=== PATIENT | female | born 1985 | race Caucasian/White ===

== ENCOUNTER → 2017-11-01 | Outpatient (CLI) | payer OTHER ==
[~2017-11-01] MED LIST: ASPI81EC PO; CALCA500CH PO; CETI10 PO; CETI5 PO; CYCL10 PO; DIPH50 PO; ESTR2 PO; FERR325 PO; GLYB2.5 PO; HYDACE5 PO; IBUP800 PO; IRON150C PO; LEVSOD100 PO; LEVSOD112 PO; MELA3 PO; METF500 PO; MULVITMINE PO; Norco 5-325 Ta1 EACH PO; OXYACE5T PO; PROG100 PO; RXCYCL10 PO; Verotin-Gr Cap1 EACH PO; [UNRECOGNIZED DRUG - OTHER] VAG
[2017-11-03 11:40] LABS: HPV Genotype 16 Detected (NOTDET); HPV Genotype 18 Not Detected (NOTDET)
[2017-11-15 11:28] LABS: HPV High Risk Other Detected (NOTDET)
== END | disposition home or self-care (01) ==
LOC: LAB 16:10
PROVIDERS: Obstetrics & Gynecology
DX: D06.9 Carcinoma in situ of cervix, unspecified (principal); R87.810 Cervical high risk human papillomavirus (HPV) DNA test positive; R87.613 High grade squamous intraepithelial lesion on cytologic smear of cervix (HGSIL)
CPT/HCPCS: 87624; 88142

== ENCOUNTER → 2018-03-05 | Outpatient (CLI) | payer OTHER | END | disposition home or self-care (01) | LOC: LAB SHORT 07:25 → LAB 07:25 → PLD 07:25 | PROVIDERS: Obstetrics & Gynecology | DX: R87.810 Cervical high risk human papillomavirus (HPV) DNA test positive (principal); R87.612 Low grade squamous intraepithelial lesion on cytologic smear of cervix (LGSIL) | CPT/HCPCS: 87624; 88142; 88305 ==

== ENCOUNTER → 2018-10-30 | Outpatient (CLI) | payer OTHER | LOC: LAB SHORT 08:29 → PLD 08:29 | DX: R87.612 Low grade squamous intraepithelial lesion on cytologic smear of cervix (LGSIL) (principal); R87.810 Cervical high risk human papillomavirus (HPV) DNA test positive | CPT/HCPCS: 88305 ==

== ENCOUNTER → 2019-05-21 | Outpatient (CLI) | payer OTHER ==
[~2019-05-21] MED LIST changes: +Adipex-P37.5 MG PO; +Alavert D-12 A1 EACH PO; +DOCU100 PO; +FLUT1DIS2 INH; +Flovent 44 mc10.6 GM INH; +Junel Fe 1-201 EACH PO; +SENN187 PO; +VITAMIN B COMPLEX PO; +VITAMIN D3 PO
[2019-05-23 18:06] LABS: HPV 16 Positive (Negative); HPV 18 Negative (Negative); HPV OTHER HR TYPES Positive (Negative)
== END | disposition home or self-care (01) ==
LOC: LAB 16:10 → LAB SHORT 16:10
PROVIDERS: Obstetrics & Gynecology
DX: R87.810 Cervical high risk human papillomavirus (HPV) DNA test positive (principal); R87.612 Low grade squamous intraepithelial lesion on cytologic smear of cervix (LGSIL)
CPT/HCPCS: 87624; 87625; 88142

== ENCOUNTER 2019-07-19 06:08 | Day surgery (SDC) | payer OTHER ==
[~2019-07-19] VITALS: Ht 167.6 cm; Wt 96.2 kg
--- NOTE | 2019-07-19 06:53 | NUR ---
History, Chart, Medications and Allergies reviewed before start of procedure.Patient confirms NPO status and agrees with scheduled surgery. Lungs clear T/O to Auscultation. Patient States Post-Procedure ride home has been arranged WITH HER FATHER.
--- NOTE | 2019-07-19 10:03 | NUR ---
Discharge instructions reviewed with patient. Patient verbalizes understanding. Copy given to patient to take home. DAD AT BEDSIDE, RIDE HOME.TOLERATED PO JUICE AND CRACKERS WELL AND GAVE PO NORCO PER ORDER.
--- NOTE | 2019-07-19 10:16 | NUR ---
1015- Discharged via wheelchair to private car for ride home.
== END 2019-07-19 10:15 | disposition home or self-care (01) ==
LOC: ORSCMMR 06:08 → ORD 07:30 → ORSCMMR 10:15
PROVIDERS: Surgery
PROC: 0DBQXZX Excision of Anus, External Approach, Diagnostic (ICD-10-PCS; principal; 2019-07-19 07:30)
PROC: 06BY0ZC Excision of Hemorrhoidal Plexus, Open Approach (ICD-10-PCS; principal; 2019-07-19 07:30)
DX: K64.8 Other hemorrhoids (principal); K64.4 Residual hemorrhoidal skin tags; R85.613 High grade squamous intraepithelial lesion on cytologic smear of anus (HGSIL); E03.9 Hypothyroidism, unspecified; J45.909 Unspecified asthma, uncomplicated; E66.9 Obesity, unspecified; Z68.34 Body mass index [BMI] 34.0-34.9, adult; Z79.899 Other long term (current) drug therapy
CPT/HCPCS: 88304; 88305; A9270-GY; J1100; J1885; J2250; J2405; J2704; J2710; J3010; J7120

== ENCOUNTER → 2019-09-17 | Outpatient (CLI) | payer OTHER ==
[2019-09-17 14:41] LABS: BASOPHILS ABSOLUTE AUTO 0.04 K/mm3 (0.00-0.23); BASOPHILS PERCENT AUTO 1 % (0-2); EOSINOPHILS PERCENT AUTO 3 % (0-6); Hematocrit 39.3 % (33.0-51.0); Hemoglobin 12.7 g/dL (11.5-16.0); IMMATURE GRAN ABSOLUTE AUTO 0.02 K/mm3 (0.00-0.10); IMMATURE GRAN PERCENT AUTO 0 % (0-1); LYMPHOCYTES PERCENT AUTO 36 % (21-46); MONOCYTES PERCENT AUTO 11 % (4-13); Mean Corpuscular HGB 30.8 pg (26.0-34.0); Mean Corpuscular HGB Conc 32.3 g/dL (31.5-36.5); Mean Corpuscular Volume 95 fL (80-100); Mean Platelet Volume 11.2 fL (9.1-12.4); NEUTROPHILS ABSOLUTE AUTO 3.19 K/mm3 (1.96-9.15); NEUTROPHILS PERCENT AUTO 49 % (41-73); Platelet Count 297 K/mm3 (150-400); RDW Coefficient Variation 12.8 % (11.7-14.2); RDW Standard Deviation 44.3 fL (35.1-46.3); Red Blood Cell Count 4.13 M/mm3 (3.80-5.20); White Blood Cell Count 6.45 K/mm3 (4.00-11.30)
[2019-09-17 15:10] LABS: Alanine Aminotransfer (ALT/SGP 38 U/L (12-78); Albumin, Blood 3.4 g/dL (3.4-5.0); Albumin/Globulin Ratio 0.8 (0.8-1.8); Alk Phos 70 U/L (50-136); Anion Gap 5 mmol/L (6-16); Aspartate Aminotrans (AST/SGOT 24 U/L (12-37); Bilirubin, Total 0.3 mg/dL (0.1-1.0); Blood Urea Nitrogen 11 mg/dL (8-24); Bun/Creatinine Ratio 15.1 (12.0-20.0); CO2, Blood 26 mmol/L (21-32); Calcium, Blood 9.1 mg/dL (8.5-10.1); Chloride, Blood 109 mmol/L (98-108); Creatinine, Blood 0.73 mg/dL (0.40-1.00); Globulin, Blood 4.4 g/dL (2.2-4.0); Glomerular Filtration Rate >60 (60-); Glucose, Blood 73 mg/dL (70-99); Potassium, Blood 3.9 mmol/L (3.5-5.5); Sodium, Blood 140 mmol/L (136-145); Total Protein, Blood 7.8 g/dL (6.4-8.2)
== END | disposition home or self-care (01) ==
LOC: LAB 13:15 → LAB SHORT 13:15
PROVIDERS: Obstetrics & Gynecology
DX: Z01.812 Encounter for preprocedural laboratory examination (principal)
CPT/HCPCS: 80053; 85025

== ENCOUNTER 2019-09-26 06:19 | Day surgery (SDC) | payer OTHER ==
[~2019-09-26] VITALS: Ht 167.6 cm; Wt 103.0 kg
[~2019-09-26 06:19] MED LIST changes: +Super B Comple1 EAC2 PO; +VITAMIN D31000 UNI3 PO
[2019-09-26] MEDS ORDERED: CLARITIN10 MG PO (06:40)
[2019-09-26] MEDS ORDERED: Omega 3 1,0001 EACH PO (06:41)
[2019-09-26] MEDS ORDERED: MIRALAX17 GM PO (06:42)
--- NOTE | 2019-09-26 06:53 | NUR ---
PT ADMITTED TO [facility]. AGREES WITH PLANNED SURGERY. LUNG SOUND CLEAR.
--- NOTE | 2019-09-26 19:53 | NUR ---
POST OP: REPORT RECEIVED FROM DATA COLLECTION TECHNICIAN. PT TO UNIT AT ABOUT 1040. UPON ASSESSMENT PT IS A/O, VSS. REPORTS CRAMPING PAIN, BUT IS TOLERABLE. SURGICAL SITES WNL, SCANT DRAINAGE AT [place] PAD. ABLE TO TAKE IN ICE CHIPS AND JELLO. WILL CTM.
--- NOTE | 2019-09-26 19:57 | NUR ---
SUMMARY: PT IS POD0 LAVH. NO ACUTE CHANGE SINCE RECEIVED PT POST OP. PT ABLE TO AMBULATE IN HALLS AND EAT DINNER. NO NAUSEA, MINIMAL PAIN. REPORTS REHAB MANAGER MANAGING PAIN. [place] PAD CHANGED X1. VSS. REPORT GIVEN TO ADILIA ARAMBULA.
[2019-09-27 04:10] LABS: BASOPHILS ABSOLUTE AUTO 0.01 K/mm3 (0.00-0.23); BASOPHILS PERCENT AUTO 0 % (0-2); EOSINOPHILS PERCENT AUTO 0 % (0-6); Hematocrit 33.2 % (33.0-51.0); IMMATURE GRAN ABSOLUTE AUTO 0.03 K/mm3 (0.00-0.10); IMMATURE GRAN PERCENT AUTO 0 % (0-1); LYMPHOCYTES ABSOLUTE AUTO 1.95 K/mm3 (0.84-5.20); LYMPHOCYTES PERCENT AUTO 19 % (21-46); MONOCYTES ABSOLUTE AUTO 0.91 K/mm3 (0.16-1.47); MONOCYTES PERCENT AUTO 9 % (4-13); Mean Corpuscular HGB 31.2 pg (26.0-34.0); Mean Corpuscular HGB Conc 33.1 g/dL (31.5-36.5); Mean Corpuscular Volume 94 fL (80-100); Mean Platelet Volume 10.4 fL (9.1-12.4); NEUTROPHILS ABSOLUTE AUTO 7.38 K/mm3 (1.96-9.15); NEUTROPHILS PERCENT AUTO 72 % (41-73); Platelet Count 230 K/mm3 (150-400); RDW Coefficient Variation 12.8 % (11.7-14.2); RDW Standard Deviation 43.9 fL (35.1-46.3); Red Blood Cell Count 3.53 M/mm3 (3.80-5.20); White Blood Cell Count 10.28 K/mm3 (4.00-11.30)
--- NOTE | 2019-09-27 05:49 | NUR ---
SHIFT SUMMARY LYING IN LOW FOWLERS WITH EYES CLOSED. HAS BEEN PLEASANT AND COOPERATIVE THIS SHIFT. HAS AMBULATED IN HALLWAY A FEW TIMES THIS SHIFT, TOELRATED WELL. IS ANXIOUS TO BE ABLE TO GET HOME AND CARE FOR HER FAMILY. IS READY TO HAVE FLUIDS AND LARSEN CATH D/C'D IN READYNESS FOR GOING HOME LATER TODAY. DENEIS FURTHER NEEDS OR WANTS AT THIS TIME. SAFETY MEASURES IN PLACE. WILL GIVE HAND OFF TO ONCOMING SHIFT USING SBAR.
--- NOTE | 2019-09-27 06:45 | NUR ---
LARSEN CATH REMOVED WITH TIP INTACT. LAND DEGRADATION ANALYST STOPPED AND REMAINDER WASTED IN MED ROOM WITH Nicole LUIS RN. PT AMBULATING IN HALLWAY. DENIES FURTHER NEEDS AT THIS TIME. SAFETY MEASURES IN PLACE. WILL CONTINUE TO MONITOR.
--- NOTE | 2019-09-27 07:30 | NUR ---
pt awake stated pain is min no nausea this am hypo bt's no flatus min vag drainage pt has some dried drainage to umbillicus steri strips otherwise cdi pt has voided x1
--- NOTE | 2019-09-27 07:33 | NUR ---
09/27/19 0733 Angie Sexton VERIFICATIONS: EDIT CHART.
--- NOTE | 2019-09-27 08:12 | NUR ---
pt eating breakfast meds given as sched
--- NOTE | 2019-09-27 09:37 | NUR ---
dr louise by to see pt
[2019-09-27] MEDS ORDERED: IBUP800 PO (10:19)
[2019-09-27] MEDS ORDERED: HYDR1TAB94 PO (10:19)
--- NOTE | 2019-09-27 10:48 | NUR ---
discharge instructions reviewed with pt verbalized rx given waiting to void again also to stay until she eats lunch
--- NOTE | 2019-09-27 12:07 | NUR ---
AMB IN [facility] PASSED GAS BACK TO ROOM EATING LUNCH OFFERED PAIN MEDS DECLINED EARLIER VOIDED 200 ML
--- NOTE | 2019-09-27 12:48 | NUR ---
pt done eating lunch req pain meds 1 tab po given pt family here stated she passed some more gas
--- NOTE | 2019-09-27 13:15 | NUR ---
amb to car no acute changes
== END 2019-09-27 13:15 | disposition home or self-care (01) ==
LOC: ORSCMMR 06:19 → ORD 07:30 → SURS 10:53 → ORSCMMR 09-27 13:15
PROVIDERS: Obstetrics & Gynecology
PROC: 0UT1FZZ Resection of Left Ovary, Via Natural or Artificial Opening With Percutaneous Endoscopic Assistance (ICD-10-PCS; principal; 2019-09-26 07:30)
PROC: 0UB14ZZ Excision of Left Ovary, Percutaneous Endoscopic Approach (ICD-10-PCS; principal; 2019-09-26 07:30)
PROC: 0UT9FZZ Resection of Uterus, Via Natural or Artificial Opening With Percutaneous Endoscopic Assistance (ICD-10-PCS; principal; 2019-09-26 07:30)
DX: N94.89 Other specified conditions associated with female genital organs and menstrual cycle (principal); D06.9 Carcinoma in situ of cervix, unspecified; D25.2 Subserosal leiomyoma of uterus; N83.202 Unspecified ovarian cyst, left side; J45.909 Unspecified asthma, uncomplicated; E03.9 Hypothyroidism, unspecified; Z79.899 Other long term (current) drug therapy
CPT/HCPCS: 36415; 85025; 88307; J0171; J0690; J1100; J1885; J2250; J2405; J2704; J3010; J7120; Q9968

== ENCOUNTER → 2020-01-06 | Outpatient (CLI) | payer OTHER ==
[~2020-01-06] MED LIST changes: +CLARITIN10 MG PO; +HYDR1TAB94 PO; +MIRALAX17 GM PO; +Omega 3 1,0001 EACH PO
[2020-01-13 06:00] LABS: HPV 16 Negative (Negative); HPV 18 Negative (Negative); HPV OTHER HR TYPES Positive (Negative)
== END | disposition home or self-care (01) ==
LOC: LAB 12:10 → LAB SHORT 12:10
PROVIDERS: Obstetrics & Gynecology
DX: D06.9 Carcinoma in situ of cervix, unspecified (principal)
CPT/HCPCS: 87624; 88142

== ENCOUNTER → 2020-06-30 | Outpatient (CLI) | payer OTHER | END | disposition home or self-care (01) | LOC: LAB SHORT 07:37 → PLD 07:37 | DX: R87.622 Low grade squamous intraepithelial lesion on cytologic smear of vagina (LGSIL) (principal) | CPT/HCPCS: 88305 ==

== ENCOUNTER → 2020-12-02 | Outpatient (CLI) | payer OTHER | END | disposition home or self-care (01) | LOC: PLD 15:45 → LAB SHORT 15:45 | DX: E03.9 Hypothyroidism, unspecified (principal) | CPT/HCPCS: 36415; 84443 ==

== ENCOUNTER → 2020-12-29 | Outpatient (CLI) | payer OTHER ==
[2020-12-31 20:11] LABS: HPV 16 Negative (Negative); HPV 18 Negative (Negative); HPV OTHER HR TYPES Positive (Negative)
== END | disposition home or self-care (01) ==
LOC: LAB 16:15 → LAB SHORT 16:15
PROVIDERS: Obstetrics & Gynecology
DX: R87.811 Vaginal high risk human papillomavirus (HPV) DNA test positive (principal); R87.622 Low grade squamous intraepithelial lesion on cytologic smear of vagina (LGSIL)
CPT/HCPCS: 87624; 87625; 88142

== ENCOUNTER → 2022-09-27 | Outpatient (CLI) | payer OTHER | END | disposition home or self-care (01) | LOC: LAB SHORT 16:50 | DX: N89.8 Other specified noninflammatory disorders of vagina (principal) | CPT/HCPCS: 87070; 87205 ==

== ENCOUNTER → 2023-05-17 | Outpatient (CLI) | payer OTHER ==
[2023-05-18 01:18] LABS: Adenovirus F 40/41 Not Detected (NOT DETECT); Astrovirus Not Detected (NOT DETECT); Campylobacter Sp Not Detected (NOT DETECT); Cryptosporidium Not Detected (NOT DETECT); Cyclospora Cayetanensis Not Detected (NOT DETECT); E. Coli O157 Not Detected (NOT DETECT); Entamoeba Histolytica Not Detected (NOT DETECT); Enteroaggregative E. coli-EAEC Not Detected (NOT DETECT); Enteropathogenic E. coli-EPEC Not Detected (NOT DETECT); Enterotoxigenic E. coli-ETEC Not Detected (NOT DETECT); Giardia Lamblia Not Detected (NOT DETECT); Norovirus GI/GII Not Detected (NOT DETECT); Plesiomonas Shigelloides Not Detected (NOT DETECT); Rotavirus A Not Detected (NOT DETECT); Salmonella Sp Not Detected (NOT DETECT); Sapovirus Not Detected (NOT DETECT); Shiga Toxin-prod E. coli-STEC Not Detected (NOT DETECT); Shigella/Enteroin E. coli-EIEC Not Detected (NOT DETECT); Vibrio Cholerae Not Detected (NOT DETECT); Vibrio Sp Not Detected (NOT DETECT); Yersinia Enterocolitica Not Detected (NOT DETECT)
== END ==
LOC: LAB 17:46 → LAB SHORT 17:46
PROVIDERS: Family Medicine
DX: R19.7 Diarrhea, unspecified (principal)
CPT/HCPCS: 87507